=== PATIENT | female | born 1985 | race Caucasian/White ===

== ENCOUNTER 2020-02-09 06:04 | Day surgery (SDC) | payer OTHER ==
[~2020-02-09] VITALS: Ht 157.5 cm; Wt 115.2 kg
[2020-02-09 06:29] VITALS: BP 134/69
== END 2020-02-09 07:55 | disposition home or self-care (01) ==
LOC: DS 06:04 → OR 07:30 → DS 07:30
PROVIDERS: ATTEND Obstetrics & Gynecology
DX: Z53.8 Procedure and treatment not carried out for other reasons (principal); Z20.828 Contact with and (suspected) exposure to other viral communicable diseases
CPT/HCPCS: U0003-CS